=== PATIENT | female | born 1980 ===

== ENCOUNTER 2018-05-27 13:33 | Emergency (ER) | payer OTHER ==
[2018-05-27 13:37] VITALS: RESP 16
[2018-05-27] MEDS ORDERED: Sodium Chloride 0.9% 1,000 ML IV ONE (13:56)
--- NOTE | 2018-05-27 13:58 | ED PDOC ---
Syncope/Near Syncope/Dizziness Time Seen by Provider: 05/27/18 13:42 Chief Complaint (Nursing): Dizziness/Lightheaded Chief Complaint (Provider): Dizziness History Per: Patient History/Exam Limitations: no limitations Onset/Duration Of Symptoms: Hrs, Sudden Onset Current Symptoms Are (Timing): Still Present Additional Complaint(s): 37 year old female with PMHx of HTN presents to the ED for an evaluation of dizziness and near syncope at work prior to arrival. Patient reports of associated symptoms of fatigue and dry mouth. She states she woke up feeling fine and tolerated breakfast without any difficulty. She reports the symptoms were sudden onset but she denies any other complaints. Also denies fever, chills , nausea, vomiting, diarrhea, abdominal pain, visual changes, chest pain, shortness of breath, cough, weakness or numbness. Her last normal menstrual period was on May 16. PMD: Dr. Sharam Past Medical History Reviewed: Historical Data, Nursing Documentation, Vital Signs Vital Signs: Last Vital Signs Temp 98.0 F 05/27/18 13:35 Pulse 85 05/27/18 13:35 Resp 16 05/27/18 13:35 BP 115/73 05/27/18 13:35 Pulse Ox 100 05/27/18 13:35 - Medical History PMH: HTN - Surgical History Surgical History: Cholecystectomy, - Family History Family History: States: Unknown Family Hx - Home Medications Home Medications: Ambulatory Orders Medication Instructions Recorded Meclizine [Meclizine*] 25 mg PO Q6 PRN #12 tab 05/27/18 Nitrofurantoin Macrocrystals 100 mg PO BID #14 cap 05/27/18 [Macrobid] - Allergies Allergies/Adverse Reactions: Allergies Allergy/AdvReac Type Severity Reaction Status Date / Time No Known Allergies Allergy Verified 05/27/18 13:34 Review of Systems ROS Statement: Except As Marked, All Systems Reviewed And Found Negative Constitutional: Positive for: Other (fatigue). Negative for: Fever, Chills ENT: Positive for: Other (dry mouth) Cardiovascular: Negative for: Chest Pain Respiratory: Negative for: Shortness of Breath Gastrointestinal: Negative for: Nausea, Vomiting, Abdominal Pain, Diarrhea Neurological: Positive for: Dizziness. Negative for: Weakness, Numbness, Headache Physical Exam - Reviewed Nursing Documentation Reviewed: Yes Vital Signs Reviewed: Yes - Physical Exam Comments: GENERALIZED APPEARANCE:Patient is awake, alert, oriented x3, and in no acute distress. SKIN: Warm, dry; (-) cyanosis. EYES: (-) conjunctival pallor. ENMT: Mucous membranes dry. Airway patent, (-) stridor. NECK: Supple, FROM (-) tenderness, (-) stiffness, (-) lymphadenopathy. CHEST AND RESPIRATORY: (-) rales, (-) rhonchi, (-) wheezes; breath sounds equal bilaterally. Respirations even and nonlabored. HEART AND CARDIOVASCULAR: (-) irregularity ABDOMEN AND GI: Soft; (-) distention, (-) tenderness, (-) rebound, (-) guarding , (-) palpable masses, (-) flank tenderness. EXTREMITIES: (-) deformity; (-) edema. NEURO AND PSYCH: Mental status as above. transportation engineer: (-) nystagmus; Pupils equal and reactive. EOMI and painless, (-) facial asymmetry; (-) dysarthria (-) aphasia; tongue and uvula midline. Strength symmetric. Gait: normal. Speech: clear. - Laboratory Results Result Diagrams: 05/27/18 15:16 05/27/18 15:16 Urine POC: Negative Urine dip results: Positive for: Leukocyte Esterase (small), Blood (moderate), Protein (trace). Negative for: Nitrate, Ketones, Glucose, Bilirubin - ECG O2 Sat by Pulse Oximetry: 100 (RA) Pulse Ox Interpretation: Normal Medical Decision Making Medical Decision Making: Time: 1350 Initial Impression: Dizziness, near syncope Initial Plan: --EKG --Alcohol Serum --CMP --Drug Screen --Troponin I --ED Urine --ED Urine Dipstick --CBC w/ Differential --Glucose, POC, Blood --Antivert 25mg --Normal Saline 1000 mls/hr --Reglan 10mg --Director Phone --IV Insertion --Reevaluation 1400 Accucheck: 126 1555 CBC, CMP grossly unremarkable. H&H stable. No elevation of WBCs. Alcohol Serum: <10 Troponin <0.01 1600 Udip reviewed. Upreg (-) U/A and U/C ordered. EKG reviewed: SR @ 72bpm (-) ST elevation, QTc 433 1700 U/A reviewed (+) UTI. Macrobid 100mg PO ordered. On re-evaluation, patient reports resolution of symptoms. On exam, patient remains AAOx3, in no acute distress. Lungs CTA, cardiac RRR, abdomen soft, nontender, repeat neuro exam shows no focal findings. Vitals stable. Ambulatory with a steady, unassisted gait in ED. Lab/Diagnostic results d/w with the patient in great detail. Diagnosis of near syncope, dizziness, UTI d/w patient. Based on history, exam, and diagnostic results, plan will be for outpatient follow up. Patient instructed to follow up with PMD / referral provided / the clinic in 1- 2 days without fail. Advised to take medication as prescribed. Return to the emergency room at any time for any new or worsening symptoms. Patient states she agrees with and understandings discharge instructions. States that she agrees with the plan and disposition. Verbalized and repeated discharge instructions and plan. I have given the patient opportunity to ask any additional questions. Scribe Attestation: Documented by Malou Sen, acting as a scribe for Shani Davison PA-C. Provider Scribe Attestation: All medical record entries made by the Scribe were at my direction and personally dictated by me. I have reviewed the chart and agree that the record accurately reflects my personal performance of the history, physical exam, medical decision making, and the department course for this patient. I have also personally directed, reviewed, and agree with the discharge instructions and disposition. Disposition - Clinical Impression Clinical Impression: Dizziness, Near syncope, UTI (urinary tract infection) - Patient ED Disposition Is Patient to be Admitted: No Counseled Patient/Family Regarding: Studies Performed, Diagnosis, Need For Followup, Rx Given - Disposition Referrals: Petra Yang MD [Medical Doctor] - Disposition: Routine/Home Disposition Time: 17:12 Condition: STABLE Additional Instructions: The emergency medical care you received today was directed towards your acute symptoms. If you were prescribed medication, please fill it at the pharmacy and take it as directed. It may take several days for your symptoms to resolve. Return to emergency department if your symptoms worsen, do not improve, or if you have any other problems. Please contact your doctor / referred provider / clinic in 2 days for further evaluation. The treatement in the emergency department cannot replace ongoing medical care by a primary doctor outside of the emergency department. Prescriptions: Meclizine [Meclizine*] 25 mg PO Q6 PRN #12 tab PRN Reason: Dizziness Nitrofurantoin Macrocrystals [Macrobid] 100 mg PO BID #14 cap Instructions: Urinary Tract Infections in Adults, Dizziness, Nonvertigo, (DC), Near Fainting Forms: [employer] (Nepalese) Print Language: JAPANESE - POA Present On Arrival: None Results - Lab Results Lab Results: 05/27/18 05/27/18 05/27/18 16:15 15:16 15:16 WBC 9.5 RBC 4.02 Hgb 11.1 L Hct 34.3 MCV 85.2 MCH 27.7 MCHC 32.5 L RDW 15.6 H Plt Count 213 MPV 10.5 Neut % (Auto) 78.7 H Lymph % (Auto) 16.1 L [place] % (Auto) 4.4 Eos % (Auto) 0.4 Baso % (Auto) 0.4 Neut # (Auto) 7.5 H Lymph # (Auto) 1.5 Bay # (Auto) 0.4 Eos # (Auto) 0.0 Baso # (Auto) 0.0 Sodium 135 Potassium 4.0 Chloride 102 Carbon Dioxide 26 Anion Gap 11 BUN 11 Creatinine 0.7 Est GFR ( Amer) > 60 Est GFR (Non-Af Amer) > 60 POC Glucose (mg/dL) Random Glucose 110 H Calcium 9.1 Total Bilirubin 0.2 AST 23 ALT 28 Alkaline Phosphatase 65 Troponin I < 0.0120 Total Protein 7.5 Albumin 4.2 Globulin 3.3 Albumin/Globulin Ratio 1.3 Urine Color Yellow Urine Clarity Cloudy Urine pH 5.0 Ur Specific [place] 1.021 Urine Protein 30 Urine Glucose (UA) Neg Urine Ketones Negative Urine Blood Moderate Urine Nitrate Negative Urine Bilirubin Negative Urine Urobilinogen 0.2-1.0 Ur Leukocyte Esterase Large Urine RBC (Auto) 45 H Urine Microscopic WBC 28 H Ur Squamous Epith Cells 5 Urine Bacteria Occ H Alcohol, Quantitative < 10 05/27/18 13:47 WBC RBC Hgb Hct MCV MCH MCHC RDW Plt Count MPV Neut % (Auto) Lymph % (Auto) Bay % (Auto) Eos % (Auto) Baso % (Auto) Neut # (Auto) Lymph # (Auto) [place] # (Auto) Eos # (Auto) Baso # (Auto) Sodium Potassium Chloride Carbon Dioxide Anion Gap BUN Creatinine Est GFR ( Amer) Est GFR (Non-Af Amer) POC Glucose (mg/dL) 126 H Random Glucose Calcium Total Bilirubin AST ALT Alkaline Phosphatase Troponin I Total Protein Albumin Globulin Albumin/Globulin Ratio Urine Color Urine Clarity Urine pH Ur Specific [place] Urine Protein Urine Glucose (UA) Urine Ketones Urine Blood Urine Nitrate Urine Bilirubin Urine Urobilinogen Ur Leukocyte Esterase Urine RBC (Auto) Urine Microscopic WBC Ur Squamous Epith Cells Urine Bacteria Alcohol, Quantitative
[2018-05-27 15:29] LABS: BASO % 0.4 % (0.0-2.0); EOS % 0.4 % (0.0-4.0); HEMOGLOBIN 11.1 g/dL (12.0-16.0); LYMPH # 1.5 K/uL (1.0-4.3); LYMPH % 16.1 % (20.0-40.0); MEAN CELL VOLUME 85.2 fl (81.0-99.0); MEAN CORPUSCULAR HEMOGLOBIN 27.7 pg (27.0-31.0); MEAN CORPUSCULAR HGB CONC 32.5 g/dL (33.0-37.0); MEAN PLATELET VOLUME 10.5 fl (7.2-11.7); MONO # 0.4 K/uL (0.0-0.8); MONO % 4.4 % (0.0-10.0); NEUT # 7.5 K/uL (1.8-7.0); NEUT % 78.7 % (50.0-75.0); RBC 4.02 Mil/uL (3.80-5.20); RED CELL DISTRIBUTION WIDTH 15.6 % (11.5-14.5); WHITE BLOOD COUNT 9.5 K/uL (4.8-10.8)
[2018-05-27 15:48] LABS: ALB/GLOB RATIO 1.3 (1.0-2.1); ALBUMIN 4.2 g/dL (3.5-5.0); ALT/SGPT 28 U/L (9-52); AST/SGOT 23 U/L (14-36); BLOOD UREA NITROGEN 11 mg/dl (7-17); CALCIUM 9.1 mg/dL (8.4-10.2); GFR NON-AFRICAN AMERICAN > 60
[2018-05-27 16:52] LABS: SQUAMOUS EPITHIAL 5 /hpf (0-5); URINE BACTERIA OCC (<OCC); URINE BILIRUBIN NEGATIVE (NEGATIVE); URINE BLOOD MODERATE (NEGATIVE); URINE CLARITY CLOUDY (Clear); URINE COLOR YELLOW (YELLOW); URINE GLUCOSE (UA) NEG (Normal); URINE LEUKOCYTE ESTERASE LARGE Leu/uL (Negative); URINE PROTEIN 30 mg/dL (NEGATIVE); URINE UROBILINOGEN 0.2-1.0 mg/dL (0.2-1.0)
[2018-05-27 17:58] VITALS: BP 138/72; PULSE 74; TEMP 97.9
--- NOTE | 2018-05-28 07:41 | CARD ---
APPROVED REPORT Date of service: 05/27/2018 EKG Measurement Heart [id number] <Conclusion> Sinus rhythm with premature atrial complexes Possible Left atrial enlargement Borderline ECG
[2018-05-29 17:30] VITALS: O2SAT 100
== END 2018-05-27 17:57 | disposition home or self-care (01) ==
LOC: H.ER 13:33
DX: R55 Syncope and collapse (principal); R42 Dizziness and giddiness; N39.0 Urinary tract infection, site not specified; I10 Essential (primary) hypertension
CPT/HCPCS: 80053; 80320; 81003; 82948; 84484; 85025; 87086; 93005; 96374; 99284; J2765; J7040